=== PATIENT | female | born 2000 | race Caucasian/White ===

== ENCOUNTER 2021-07-13 07:10 | Observation (INO) | payer MEDICAID ==
[~2021-07-13] VITALS: Ht 167.6 cm; Wt 81.6 kg
[2021-07-13] MEDS ORDERED: PREN-96 PO (08:21)
== END 2021-07-13 11:15 | disposition home or self-care (01) ==
LOC: LDRP 07:10
PROVIDERS: ADMIT Obstetrics & Gynecology; ATTEND Obstetrics & Gynecology
DX: O26.852 Spotting complicating pregnancy, second trimester (principal); Z3A.21 21 weeks gestation of pregnancy
CPT/HCPCS: 59025; 76815; 81002; 94760; G0378

== ENCOUNTER → 2021-10-27 | Outpatient (CLI) | payer MEDICAID ==
[~2021-10-27] MED LIST: PREN-96 PO
[2021-10-27 08:51] LABS: Basophils # (auto) 0.1 10 ^3/uL (0-0.2); Basophils % (auto) 0.6 % (0.0-2.0); Eosinophils # (auto) 0.1 10 ^3/uL (0-0.8); Eosinophils % (auto) 0.8 % (0.0-7.0); Hematocrit 35.2 % (36.0-46.0); Hemoglobin 11.9 g/dL (12.2-16.2); Lymphocytes # (auto) 1.8 10 ^3/uL (0.4-5.4); Lymphocytes % (auto) 21.1 % (10.0-50.0); Mean Corpuscular Hemoglobin 28.9 pg (28.0-32.0); Mean Corpuscular Hgb Conc. 33.8 g/dL (32.0-36.0); Mean Corpuscular Volume 85.5 fL (80.0-100.0); Monocytes # (auto) 0.5 10 ^3/uL (0-1.3); Monocytes % (auto) 5.8 % (0.0-12.0); Neutrophils # (auto) 6.2 10 ^3/uL (1.6-8.6); Neutrophils % (auto) 71.7 % (37.0-80.0); Red Blood Cells 4.12 10^6/uL (4.0-5.20); Red Cell Distribution Width 13.4 % (11.8-14.3); White Blood Cell 8.7 10^3/uL (4.4-10.8)
[2021-10-28 06:07] LABS: RPR Non Reactive (Non Reactive)
== END | disposition home or self-care (01) ==
LOC: LAB 08:40
PROVIDERS: ATTEND Obstetrics & Gynecology
DX: Z34.00 Encounter for supervision of normal first pregnancy, unspecified trimester (principal)
CPT/HCPCS: 36415; 84112; 85025; 86592

== ENCOUNTER → 2021-11-03 | Outpatient (CLI) | payer MEDICAID ==
[2021-11-03 09:30] LABS: Basophils # (auto) 0 10 ^3/uL (0-0.2); Basophils % (auto) 0.4 % (0.0-2.0); Eosinophils # (auto) 0.1 10 ^3/uL (0-0.8); Eosinophils % (auto) 0.7 % (0.0-7.0); Hematocrit 35.8 % (36.0-46.0); Hemoglobin 11.9 g/dL (12.2-16.2); Lymphocytes # (auto) 1.5 10 ^3/uL (0.4-5.4); Lymphocytes % (auto) 18.1 % (10.0-50.0); Mean Corpuscular Hemoglobin 28.7 pg (28.0-32.0); Mean Corpuscular Hgb Conc. 33.2 g/dL (32.0-36.0); Mean Corpuscular Volume 86.4 fL (80.0-100.0); Monocytes # (auto) 0.4 10 ^3/uL (0-1.3); Monocytes % (auto) 5.1 % (0.0-12.0); Neutrophils # (auto) 6.1 10 ^3/uL (1.6-8.6); Neutrophils % (auto) 75.7 % (37.0-80.0); Nucleated Red Blood Cells % 0.1 %; Red Blood Cells 4.14 10^6/uL (4.0-5.20); Red Cell Distribution Width 13.4 % (11.8-14.3); White Blood Cell 8.1 10^3/uL (4.4-10.8)
[2021-11-04 06:06] LABS: RPR Non Reactive (Non Reactive)
== END | disposition home or self-care (01) ==
LOC: LAB 09:05
PROVIDERS: ATTEND Obstetrics & Gynecology
DX: Z34.80 Encounter for supervision of other normal pregnancy, unspecified trimester (principal); Z3A.00 Weeks of gestation of pregnancy not specified
CPT/HCPCS: 36415; 85025; 86592

== ENCOUNTER 2021-11-10 10:44 | Observation (INO) | payer MEDICAID | END 2021-11-10 13:24 | disposition home or self-care (01) | LOC: LDRP 10:44 → UNDOADMOB 10:44 → LDRP 10:52 | PROVIDERS: ADMIT Obstetrics & Gynecology; ATTEND Obstetrics & Gynecology | DX: O69.81X0 Labor and delivery complicated by cord around neck, without compression, not applicable or unspecified (principal); O62.9 Abnormality of forces of labor, unspecified; Z3A.38 38 weeks gestation of pregnancy | CPT/HCPCS: 59025; 76818; 81002; G0378 ==

== ENCOUNTER → 2021-11-10 | Outpatient (CLI) | payer MEDICAID ==
[2021-11-10 09:58] LABS: Basophils # (auto) 0 10 ^3/uL (0-0.2); Basophils % (auto) 0.5 % (0.0-2.0); Eosinophils # (auto) 0.1 10 ^3/uL (0-0.8); Eosinophils % (auto) 0.6 % (0.0-7.0); Hematocrit 36.3 % (36.0-46.0); Hemoglobin 12.1 g/dL (12.2-16.2); Lymphocytes # (auto) 1.6 10 ^3/uL (0.4-5.4); Mean Corpuscular Hemoglobin 28.7 pg (28.0-32.0); Mean Corpuscular Hgb Conc. 33.3 g/dL (32.0-36.0); Monocytes # (auto) 0.6 10 ^3/uL (0-1.3); Monocytes % (auto) 6.3 % (0.0-12.0); Neutrophils # (auto) 6.7 10 ^3/uL (1.6-8.6); Neutrophils % (auto) 74.6 % (37.0-80.0); Red Blood Cells 4.22 10^6/uL (4.0-5.20)
[2021-11-11 05:07] LABS: RPR Non Reactive (Non Reactive)
== END | disposition home or self-care (01) ==
LOC: LAB 09:44
PROVIDERS: ATTEND Obstetrics & Gynecology
DX: Z34.00 Encounter for supervision of normal first pregnancy, unspecified trimester (principal); Z3A.00 Weeks of gestation of pregnancy not specified
CPT/HCPCS: 36415; 85025; 86592

== ENCOUNTER 2021-11-18 07:59 | Observation (INO) | payer MEDICAID | END 2021-11-18 10:00 | disposition home or self-care (01) | LOC: UNDOADMOB 08:12 → LDRP 08:12 | PROVIDERS: ADMIT Obstetrics & Gynecology; ATTEND Obstetrics & Gynecology | DX: O69.81X0 Labor and delivery complicated by cord around neck, without compression, not applicable or unspecified (principal); Z3A.39 39 weeks gestation of pregnancy | CPT/HCPCS: 59025; 76818; 81002; 94760; G0378 ==

== ENCOUNTER 2021-11-23 08:00 | Observation (INO) | payer MEDICAID | END 2021-11-23 09:21 | disposition home or self-care (01) | LOC: LDRP 08:00 | PROVIDERS: ADMIT Obstetrics & Gynecology Obstetrics; ATTEND Obstetrics & Gynecology Obstetrics | DX: O62.9 Abnormality of forces of labor, unspecified (principal); O36.8930 Maternal care for other specified fetal problems, third trimester, not applicable or unspecified; Z3A.40 40 weeks gestation of pregnancy | CPT/HCPCS: 59025; 76818; 81002; 94760; G0378 ==

== ENCOUNTER 2021-11-25 07:14 | Observation (INO) | payer MEDICAID | END 2021-11-25 15:52 | disposition home or self-care (01) | LOC: LDRP 14:09 → UNDOADMOB 14:09 → LDRP 14:49 | PROVIDERS: ADMIT Obstetrics & Gynecology; ATTEND Obstetrics & Gynecology | DX: O48.0 Post-term pregnancy (principal); Z3A.40 40 weeks gestation of pregnancy | CPT/HCPCS: 59025; 76818; 81002; 94760; G0378 ==

== ENCOUNTER 2021-11-27 08:09 | Observation (INO) | payer MEDICAID ==
[~2021-11-27] VITALS: Ht 165.1 cm; Wt 88.0 kg
== END 2021-11-27 16:55 | disposition home or self-care (01) ==
LOC: LDRP 14:59 → UNDOADMOB 14:59 → LDRP 15:50 → UNDODISOB 16:55
PROVIDERS: ADMIT Obstetrics & Gynecology; ATTEND Obstetrics & Gynecology
DX: O48.0 Post-term pregnancy (principal); Z3A.40 40 weeks gestation of pregnancy
CPT/HCPCS: 59025; 76818; 81002; 94760; G0378

== ENCOUNTER 2021-11-29 20:32 | Observation (INO) | payer MEDICAID | END 2021-11-29 21:47 | disposition home or self-care (01) | LOC: LDRP 20:32 | PROVIDERS: ADMIT Obstetrics & Gynecology; ATTEND Obstetrics & Gynecology | DX: O48.0 Post-term pregnancy (principal); O36.8930 Maternal care for other specified fetal problems, third trimester, not applicable or unspecified; O26.893 Other specified pregnancy related conditions, third trimester; R10.2 Pelvic and perineal pain; Z3A.40 40 weeks gestation of pregnancy | CPT/HCPCS: 59025; 76818; 81002; G0378 ==

== ENCOUNTER 2021-11-30 09:00 | Inpatient (IN) | payer MEDICAID ==
[~2021-11-30] VITALS: Ht 167.6 cm; Wt 96.6 kg
[2021-11-30] MEDS ORDERED: LIDOCAINE 2%HCL (LOCAL ANESTH.) INJ 10ml MDV IJ PRN (11:30)
[2021-11-30] MEDS ORDERED: PROMETHAZINE HCL 25 MG/ML 1ML IV PRN (11:30)
[2021-11-30] MEDS ORDERED: LACT. RINGERS/OXYTOCIN 20UNITS 500 ML IV ONE ×2 (11:30→12:00)
[2021-11-30] MEDS ORDERED: BUTORPHANOL TARTRATE 2 MG/1 ML VIAL IV PRN ×2 (11:30)
[2021-11-30 11:46] LABS: Urine Bacteria FEW /hpf (None Seen); Urine Blood 2+ /uL (Negative); Urine Specific Gravity 1.018 (1.001-1.035); Urine WBC 34 /hpf (0 - 5)
[2021-11-30 12:03] LABS: Amphetamine Screen, Urine NEGATIVE (NEGATIVE); Barbiturate Scree,Urine NEGATIVE (NEGATIVE); Benzodiazephine Screen, Urine NEGATIVE (NEGATIVE); Cannabinoid Screen, Urine NEGATIVE (NEGATIVE); Cocaine Screen, Urine NEGATIVE (NEGATIVE); Opiate Scree,Urine NEGATIVE (NEGATIVE); Phencyclidine Screen, Urine NEGATIVE (NEGATIVE)
[2021-11-30] MEDS: LACTATED RINGER'S 1,000 ML IV SCH ×2 (12:09→16:37)
[2021-11-30 12:15] LABS: Basophils # (auto) 0 10 ^3/uL (0-0.2); Basophils % (auto) 0.3 % (0.0-2.0); Eosinophils # (auto) 0 10 ^3/uL (0-0.8); Eosinophils % (auto) 0.2 % (0.0-7.0); Hematocrit 35.5 % (36.0-46.0); Hemoglobin 11.9 g/dL (12.2-16.2); Lymphocytes # (auto) 1.2 10 ^3/uL (0.4-5.4); Lymphocytes % (auto) 8.9 % (10.0-50.0); Mean Corpuscular Hgb Conc. 33.5 g/dL (32.0-36.0); Mean Corpuscular Volume 83.8 fL (80.0-100.0); Monocytes # (auto) 0.5 10 ^3/uL (0-1.3); Neutrophils # (auto) 11.8 10 ^3/uL (1.6-8.6); Neutrophils % (auto) 86.6 % (37.0-80.0); Red Blood Cells 4.24 10^6/uL (4.0-5.20); Red Cell Distribution Width 14.4 % (11.8-14.3); White Blood Cell 13.6 10^3/uL (4.4-10.8)
[2021-11-30 12:32] LABS: Albumin 2.6 g/dL (3.4-5.0); BUN/Creatinine Ratio 11.1; Calcium 8.2 mg/dL (8.5-10.1); Potassium 3.9 mmol/L (3.5-5.1)
[2021-11-30 12:34] LABS: INR 0.88 (0.9-1.15); Partial Thromboplastin Time 24.1 sec (24.6-33.4)
[2021-11-30 12:43] LABS: Bilirubin, Total 0.4 mg/dL (0.2-1.0); Total Protein 6.7 g/dL (6.4-8.2)
[2021-11-30] MEDS: PHISODERM TOP SOLN 240ML BTL TOP PRN (16:37)
[2021-11-30] MEDS: WITCH HAZEL-GLYCERIN PAD TOP PRN (16:37)
[2021-11-30] MEDS: DERMOPLAST 60ML BOTTLE TOP PRN (16:37)
[2021-11-30] MEDS ORDERED: LIDOCAINE 2%HCL (LOCAL ANESTH.) INJ 20ML MDV ONE (17:22)
[2021-11-30 19:10] VITALS: BP 118/59
[2021-11-30] MEDS ORDERED: ACETAMINOPHEN 325 MG TAB PO PRN (19:15)
[2021-11-30] MEDS ORDERED: ONDANSETRON ODT 4 MG TAB PO PRN (19:15)
[2021-11-30] MEDS ORDERED: DOCUSATE SOD 100 MG CAP PO PRN (19:15)
[2021-11-30] MEDS: IBUPROFEN 800 MG TAB PO SCH (19:36)
[2021-12-01 03:00] VITALS: BP 121/68
[2021-12-01] MEDS: IBUPROFEN 800 MG TAB PO SCH ×3 (05:41→18:03)
[2021-12-01 07:00] VITALS: BP 113/74
[2021-12-01 07:06] LABS: RPR Non Reactive (Non Reactive)
[2021-12-01 11:00] VITALS: BP 119/73
[2021-12-01 15:00] VITALS: BP 120/80
[2021-12-01 19:00] VITALS: BP 128/74
[2021-12-01 19:02] LABS: Basophils # (auto) 0.1 10 ^3/uL (0-0.2); Basophils % (auto) 1.1 % (0.0-2.0); Eosinophils # (auto) 0 10 ^3/uL (0-0.8); Eosinophils % (auto) 0.4 % (0.0-7.0); Hematocrit 31.9 % (36.0-46.0); Hemoglobin 10.6 g/dL (12.2-16.2); Lymphocytes # (auto) 2.6 10 ^3/uL (0.4-5.4); Mean Corpuscular Hemoglobin 28.1 pg (28.0-32.0); Mean Corpuscular Hgb Conc. 33.3 g/dL (32.0-36.0); Mean Corpuscular Volume 84.5 fL (80.0-100.0); Monocytes # (auto) 0.7 10 ^3/uL (0-1.3); Monocytes % (auto) 5.9 % (0.0-12.0); Neutrophils # (auto) 7.8 10 ^3/uL (1.6-8.6); Neutrophils % (auto) 69.6 % (37.0-80.0); Nucleated Red Blood Cells % 0.1 %; Red Blood Cells 3.77 10^6/uL (4.0-5.20); Red Cell Distribution Width 14.5 % (11.8-14.3); White Blood Cell 11.2 10^3/uL (4.4-10.8)
[2021-12-01] MEDS: WITCH HAZEL-GLYCERIN PAD TOP PRN (21:53)
[2021-12-01] MEDS: PHISODERM TOP SOLN 240ML BTL TOP PRN (21:53)
[2021-12-01] MEDS: DERMOPLAST 60ML BOTTLE TOP PRN (21:54)
[2021-12-01 22:29] VITALS: BP_SYST 121; BP_SYST 125; BP_DIAS 65; BP_DIAS 84
== END 2021-12-01 22:29 | disposition home or self-care (01) | DRG 560 ==
LOC: LDRP 09:00 → UNDOADMOB 09:00 → LDRP 09:15 → OBSVTOIN 11:10 → LDRP 11:30
PROVIDERS: ADMIT Obstetrics & Gynecology Obstetrics; ATTEND Obstetrics & Gynecology Obstetrics
PROC: 10E0XZZ Delivery of Products of Conception, External Approach (ICD-10-PCS; principal; 2021-11-30)
PROC: 0KQM0ZZ Repair Perineum Muscle, Open Approach (ICD-10-PCS; 2021-11-30)
PROC: 0W8NXZZ Division of Female Perineum, External Approach (ICD-10-PCS; 2021-11-30)
DX: O70.1 Second degree perineal laceration during delivery (principal); Z37.0 Single live birth; Z20.822 Contact with and (suspected) exposure to COVID-19; Z3A.41 41 weeks gestation of pregnancy
CPT/HCPCS: 36415; 59025; 80053; 80307; 81001; 81002; 85025; 85610; 85730; 86592; 86850; 86900; 86901; 94760; 96360; 96361; 96365; 96366; 96374; G0378; J2590

== ENCOUNTER 2023-09-02 08:38 | Emergency (ER) | payer MEDICAID ==
[~2023-09-02] VITALS: Ht 167.6 cm; Wt 95.6 kg
[2023-09-02 09:03] VITALS: BP 134/75; PULSE 95; RESP 18; TEMP 98.8; O2SAT 100
[2023-09-02] MEDS ORDERED: ACET-1304 PO (09:13)
[2023-09-02] MEDS ORDERED: TRIA0.02 TOP (09:13)
[2023-09-02] MEDS: ACETAMINOPHEN 500 MG TAB PO ONE (09:17)
== END 2023-09-02 09:25 | disposition home or self-care (01) ==
LOC: ER 08:38
DX: O26.892 Other specified pregnancy related conditions, second trimester (principal); M72.2 Plantar fascial fibromatosis; Z3A.21 21 weeks gestation of pregnancy

== ENCOUNTER 2024-01-06 03:08 | Inpatient (IN) | payer MEDICAID ==
[~2024-01-06] VITALS: Ht 167.6 cm; Wt 103.4 kg
[~2024-01-06 03:08] MED LIST changes: +ACET-1304 PO; +TRIA0.02 TOP
[2024-01-06] MEDS ORDERED: miSOPROStol 100 mcg TAB SL PRN (06:15)
[2024-01-06] MEDS ORDERED: BUTORPHANOL TARTRATE 2 MG/1 ML VIAL IV PRN ×2 (06:15)
[2024-01-06] MEDS ORDERED: miSOPROStol 100 mcg TAB PR PRN (06:15)
[2024-01-06] MEDS: TRANEXAMIC ACID 1,000 MG in SODIUM CHL 0.9% 100 ML IV ONE (06:15)
[2024-01-06] MEDS ORDERED: CARBOPROST TROMETHAMINE 250 MCG/1ML VIAL IM PRN (06:15)
[2024-01-06] MEDS ORDERED: LIDOCAINE 2%HCL (LOCAL ANESTH.) INJ 20ML MDV IJ PRN (06:15)
--- NOTE | 2024-01-06 06:16 | DVHHP ---
ADMIT DATE: 01/06/2024 CHIEF COMPLAINT: Labor. HISTORY OF PRESENT ILLNESS: The patient is a 23-year-old 2, para 1 with due date of 01/12/2024, estimated gestational age of 39 weeks, admitted for labor. The patient was noted to be 4 cm, 80%, -2. No rupture of membrane or vaginal bleeding. PAST MEDICAL HISTORY: None. PAST SURGICAL HISTORY: None. SOCIAL HISTORY: None. FAMILY HISTORY: None. OBSTETRIC AND GYNECOLOGIC HISTORY: One normal vaginal delivery. Blood type A positive. GBS negative. ALLERGIES: No known drug allergies. PHYSICAL EXAMINATION: VITAL SIGNS: Stable, afebrile. HEENT: Within normal limits. CARDIOVASCULAR: Regular rate and rhythm. LUNGS: Clear to auscultation. BREASTS: Symmetrical. No masses. ABDOMEN: Soft, gravid. PELVIC: 4 cm, 80%, -2. EXTREMITIES: No clubbing, cyanosis or edema. IMPRESSION: Intrauterine at 39 weeks. PLAN: Admit. Informed consent obtained. Risks and complication of delivery discussed with the patient. Informed consent to include risk of infection, bleeding. Operative delivery. All questions answered. The patient fully understands. She agrees to plan, management. DO WISAM Landaverde TID: [id number] RECEIPT: [id number]
[2024-01-06] MEDS: METHYLERGONOVINE MALEATE 0.2 MG/ML AMP IM PRN (06:49)
[2024-01-06] MEDS: LACT. RINGERS/OXYTOCIN 20UNITS 500 ML IV ONE ×2 (06:51→06:53)
[2024-01-06 06:54] LABS: Urine Bacteria FEW /hpf (None Seen); Urine Blood Negative /uL (Negative); Urine Clarity Turbid (Clear); Urine Color Light-Yellow (Yellow); Urine Protein, UAD Negative (Negative); Urine Specific Gravity 1.009 (1.001-1.035); Urine Urobilinogen Normal (Negative); Urine WBC 4 /hpf (0 - 5)
[2024-01-06] MEDS ORDERED: IBUPROFEN 600 MG TAB PO PRN (07:00)
[2024-01-06 07:05] LABS: Basophils # (auto) 0 10 ^3/uL (0-0.2); Basophils % (auto) 0.4 % (0.0-2.0); Eosinophils # (auto) 0.1 10 ^3/uL (0-0.8); Hemoglobin 11.9 g/dL (12.2-16.2); Lymphocytes % (auto) 17.5 % (10.0-50.0); Mean Corpuscular Hgb Conc. 32.9 g/dL (32.0-36.0); Mean Corpuscular Volume 82.1 fL (80.0-100.0); Monocytes # (auto) 0.6 10 ^3/uL (0-1.3); Neutrophils # (auto) 8.6 10 ^3/uL (1.6-8.6); Neutrophils % (auto) 76.1 % (37.0-80.0); Platelet Count (auto) 240 10^3/uL (140-450); Red Blood Cells 4.39 10^6/uL (4.0-5.20); Red Cell Distribution Width 15.1 % (11.8-14.3); White Blood Cell 11.3 10^3/uL (4.4-10.8)
[2024-01-06 07:07] LABS: Amphetamine Screen, Urine Neg (NEGATIVE); Barbiturate Scree,Urine Neg (NEGATIVE); Benzodiazephine Screen, Urine Neg (NEGATIVE); Cocaine Screen, Urine Neg (NEGATIVE); Opiate Scree,Urine Neg (NEGATIVE)
[2024-01-06 07:08] LABS: Cannabinoid Screen, Urine Neg (NEGATIVE); Phencyclidine Screen, Urine Neg (NEGATIVE)
[2024-01-06 07:08] LABS: Alanine Aminotransferase 14 U/L (7-40); Alkaline Phosphatase 162 U/L (46-116); Anion Gap 12 (5-15); Aspartate Aminotransferase 13 U/L (13-40); BUN/Creatinine Ratio 8.6 (10.0-20.0); Blood Urea Nitrogen 6 mg/dL (9-23); Calcium 9.5 mg/dL (8.7-10.4); Carbon Dioxide 18 mmol/L (20-31); Chloride 107 mmol/L (98-107); Glucose 98 mg/dL (74-106); Potassium 3.5 mmol/L (3.5-5.1); Sodium 137 mmol/L (136-145)
[2024-01-06 07:09] LABS: Bilirubin, Total 0.5 mg/dL (0.2-1.0); Total Protein 6.8 g/dL (5.7-8.2)
[2024-01-06] MEDS: LACTATED RINGER'S 1,000 ML IV SCH (07:17)
[2024-01-06 07:21] LABS: INR 0.93 (0.9-1.15); Partial Thromboplastin Time 22.6 SEC (24.5-34.5); Prothrombin Time 9.9 sec (9.3-11.8)
[2024-01-06] MEDS: ACETAMINOPHEN 325 MG TAB PO PRN (07:48)
[2024-01-06] MEDS: WITCH HAZEL-GLYCERIN PAD TOP PRN (09:07)
[2024-01-06] MEDS: PHISODERM TOP SOLN 240ML BTL TOP PRN (09:07)
[2024-01-06] MEDS: DERMOPLAST 60ML BOTTLE TOP PRN (09:08)
--- NOTE | 2024-01-06 09:59 | LDN2 ---
Labor and Delivery Note Date 01/06/24 Age 23 2 Para 2 EDC 11-14 EGA 39wks Diagnosis labor,morbid obesity Vaginal Delivery: VTX Vacuum Assisted: No Placenta: Spontaneous Sex: Male Apgars 8-9 Nuchal Cord Transected: No Amniotic Fluid: Clear Anesthesia xylocaine Episiotomy: No Extension: Yes (1st deg perineal lac) Repaired with 2-0 chromic EBL 300ml Labs Blood Bank 01/06/24 06:29: Blood Type A POSITIVE Complications none Conditions stable Comments/Significant Med Logan spec exam no cxal lac BRENDAN SNEED DO Jan 06, 2024 09:59
[2024-01-06] MEDS ORDERED: DIPHENOXYLATE W/ATROPINE 2.5 MG TAB PO SCH (10:00)
[2024-01-06 10:52] VITALS: BP 130/70; PULSE 89; RESP 18; TEMP 99.6; O2SAT 97
[2024-01-06 15:15] VITALS: BP 124/81; PULSE 85; RESP 15; TEMP 97.2; O2SAT 98
[2024-01-06 19:00] VITALS: BP 122/73; PULSE 100; RESP 16; TEMP 98.1; O2SAT 98
[2024-01-06 23:00] VITALS: BP 119/74; PULSE 88; RESP 16; TEMP 97.9; O2SAT 97
[2024-01-07 03:00] VITALS: BP 124/74; PULSE 88; RESP 16; TEMP 99.4; O2SAT 97
--- NOTE | 2024-01-07 03:58 | DVHDS2 ---
Physician Discharge Progress N Final Diagnosis: Term , delivered Operations or Procedures: Operations or Procedures uncomplicated Commentary: Commentary Normal labor and delivery. Uncomplicated PP course Condition on Discharge: Stable Disposition: Home Discharge Instructions: Diet: Regular Activity: Light activity Activity comment: pelvic rest x 6 weeks Follow Up/Referral: Dr. Ferreira in 2 wk Medications: Ibuprofen PRN pain Follow Up Care: Discharge Statement: "Patient was advised to return to the ER or call 911 if any headaches, dizziness, shortness of breath, chest pain, abdominal pain, bleeding, fevers, or worsening of medical condition. Patient was counseled about treatment plan, medications, possible side effects, patientverbalized understanding. All questions were answered to the best of my ability. This discharge took greater then 30 minutes in planning, reviewing documentation, counseling the patient, and discussing with other team members." HORTENSIA ECKERT DO Jan 07, 2024 03:58
[2024-01-07] MEDS ORDERED: IBU600T PO (03:59)
[2024-01-07 07:00] VITALS: PULSE 88; RESP 18; O2SAT 97
[2024-01-07 07:04] VITALS: BP 132/76; PULSE 88; RESP 18; TEMP 97.6; O2SAT 97
[2024-01-07 07:06] LABS: RPR Non Reactive (Non Reactive)
[2024-01-07 08:36] VITALS: TEMP 36.4
== END 2024-01-07 10:36 | disposition home or self-care (01) | DRG 560 ==
LOC: LDRP 03:08 → OBSVTOIN 06:05 → LDRP 06:08
PROVIDERS: ADMIT Obstetrics & Gynecology; ATTEND Obstetrics & Gynecology
PROC: 10E0XZZ Delivery of Products of Conception, External Approach (ICD-10-PCS; principal; 2024-01-06)
PROC: 0HQ9XZZ Repair Perineum Skin, External Approach (ICD-10-PCS; 2024-01-06)
DX: O99.214 Obesity complicating childbirth (principal); Z37.0 Single live birth; E66.01 Morbid (severe) obesity due to excess calories; O70.0 First degree perineal laceration during delivery; Z3A.39 39 weeks gestation of pregnancy
CPT/HCPCS: 36415; 59025; 59409; 80053; 80307; 81001; 81002; 85025; 85610; 85730; 86592; 86780; 86803; 86850; 86900; 86901; 94760; 96360; 96365; 96366; 96372; G0378; J2590

== ENCOUNTER 2024-09-18 09:23 | Outpatient (CLI) | payer MEDICAID ==
[~2024-09-18 09:23] MED LIST changes: -ACET-1304 PO; +IBU600T PO
[2024-09-18 10:22] LABS: Hematocrit 40.3 % (36.0-46.0); Hemoglobin 14.2 g/dL (12.2-16.2); Mean Corpuscular Hemoglobin 30.1 pg (28.0-32.0); Mean Corpuscular Volume 85.4 fL (80.0-100.0); Nucleated Red Blood Cells % 0.1 %
[2024-09-18 10:57] LABS: Alanine Aminotransferase 15 U/L (7-40); Albumin 4.8 g/dL (3.2-4.8); Alkaline Phosphatase 41 U/L (46-116); Anion Gap 9 (5-15); BUN/Creatinine Ratio 12.6 (10.0-20.0); Bilirubin, Total 1.0 mg/dL (0.2-1.0); Blood Urea Nitrogen 12 mg/dL (9-23); Calcium 10.3 mg/dL (8.7-10.4); Carbon Dioxide 27 mmol/L (20-31); Chloride 105 mmol/L (98-107); Cholesterol 142 mg/dL (< 200); Glucose 81 mg/dL (74-106); HDL Cholesterol 42 mg/dL (40-59); Potassium 4.5 mmol/L (3.5-5.1); Sodium 141 mmol/L (136-145); Total Protein 7.3 g/dL (5.7-8.2); Triglycerides 47 mg/dL (< 150)
[2024-09-18 10:59] LABS: Urine Protein, UAD Negative (Negative)
== END 2024-09-18 17:00 | disposition home or self-care (01) ==
LOC: LAB 09:23
PROVIDERS: ATTEND Nurse Practitioner Family
DX: E78.5 Hyperlipidemia, unspecified (principal); E55.9 Vitamin D deficiency, unspecified; R73.9 Hyperglycemia, unspecified
CPT/HCPCS: 36415; 80053; 80061; 81001; 82306; 83036; 84443; 85025